=== PATIENT | female | born 1935 | race Caucasian/White ===

== ENCOUNTER → 2017-10-22 | Emergency (ER) | payer OTHER ==
[~2017-10-22] VITALS: Ht 154.9 cm; Wt 72.6 kg
[~2017-10-22] MED LIST: CATAPRES0.2 MG; COZAAR100 MG; DOLOGEN CAPLET1 EACH PO; LEVOTHYROXINE25 MCG; LIPITOR20 MG; MEDROL4 MG PO; NORVASC5 MG; XANAX0.25 MG; ZOLOFT25 MG
== END | disposition left against medical advice (07) ==
LOC: ER 11:16
DX: K21.9 Gastro-esophageal reflux disease without esophagitis (principal); F41.8 Other specified anxiety disorders